=== PATIENT | male | born 1960 | race Caucasian/White ===

== ENCOUNTER 2016-07-27 11:12 | Outpatient (CLI) | payer OTHER | END 2016-07-27 11:13 | disposition home or self-care (01) | DX: Z12.2 Encounter for screening for malignant neoplasm of respiratory organs (principal); J43.9 Emphysema, unspecified; Z72.0 Tobacco use ==

== ENCOUNTER 2023-05-26 11:51 | Outpatient (CLI) | payer BC ==
--- NOTE | 2023-05-26 16:52 | CT Report ---
PROCEDURE: Lung Cancer Screen INDICATIONS: NICOTINE DEPENDENCE TECHNIQUE: A CT scan of the chest was performed. Intravenous contrast media was not administered. Images were re corded and evaluated at appropriate window settings. Reformats: axial MIP of the chest, coronal and s agittal. For radiation dose reduction, the following was used: automated exposure control, adjustment of mA and/or kV according to patient size. COMPARISON: Chest CT 11/24/2021 FINDINGS: Image quality: Excellent. Lungs and pleura: No pleural effusions. No pneumothorax. Mild centrilobular emphysematous changes. S table 5 mm left lower lobe peripheral nodule (4765). Stable 4 mm left upper lobe nodule (). Stabl e 4 mm right middle lobe nodule (07/25/2023). A few additional smaller nodular stable compared to prior . Mediastinum: Heart size is normal. Moderate coronary artery calcifications. No pericardial effusion. No large vessel abnormality. Atherosclerotic vascular calcifications are present. No mediastinal chelsea opathy by size criteria. Chest wall and lower neck: Thyroid is unremarkable. No axillary or supraclavicular adenopathy by size . Bones: No aggressive osseous abnormality. Degenerative changes of the spine. Upper Abdomen: Unremarkable. IMPRESSION: Stable pulmonary nodules measuring 5 mm or less. Mild emphysematous changes. Lung RAD: 2 - Benign. Recommendation: Continue annual screening in 12 Months with LDCT Reviewed by: Fred Juarez MD on 05/26/2023 4:50 PM PST Approved by: Fred Juarez MD on 05/26/2023 4:50 PM PST Station ID: [id number]
== END 2023-05-26 11:52 | disposition home or self-care (01) ==
LOC: DI 11:51
PROVIDERS: ATTEND Nurse Practitioner Family
DX: Z12.2 Encounter for screening for malignant neoplasm of respiratory organs (principal); F17.200 Nicotine dependence, unspecified, uncomplicated; R91.8 Other nonspecific abnormal finding of lung field; J43.2 Centrilobular emphysema; I25.10 Atherosclerotic heart disease of native coronary artery without angina pectoris

== ENCOUNTER 2024-06-02 10:34 | Inpatient (IN) ==
[2024-06-02 10:59] LABS: BASOPHILS % (AUTO) 0.1 %; EOSINOPHILS % (AUTO) 0.1 %; HCT - HEMATOCRIT 48.2 % (42.0-52.0); HGB - HEMOGLOBIN 15.8 g/dL (14.0-18.0); LYMPHOCYTES # (AUTO) 1.4 10^3/uL (1.5-3.5); LYMPHOCYTES % (AUTO) 10.1 %; MEAN CORPUSCULAR HEMOGLOBIN 31.5 pg (27.0-31.0); MEAN CORPUSCULAR HGB CONC 32.8 g/dL (32.0-36.0); MEAN CORPUSCULAR VOLUME 96.2 fL (80.0-94.0); MEAN PLATELET VOLUME 8.6 fL (7.4-11.4); MONOCYTES # (AUTO) 0.7 10^3/uL (0.0-1.0); MONOCYTES % (AUTO) 4.9 %; NEUTROPHILS % (AUTO) 84.3 %; PLT - PLATELET COUNT 231 10^3/uL (130-450); RED BLOOD COUNT 5.01 10^6/uL (4.70-6.10); WHITE BLOOD COUNT 14.2 x10^3/uL (4.8-10.8)
[2024-06-02 11:14] LABS: ALBUMIN 4.7 g/dL (3.2-5.5); ALBUMIN/GLOBULIN RATIO 1.6 (1.0-2.2); BILIRUBIN,TOTAL 0.5 mg/dL (0.2-1.0); CREATININE 0.6 mg/dL (0.6-1.3); POTASSIUM 3.8 mmol/L (3.5-4.5); TOTAL PROTEIN 7.6 g/dL (6.4-8.9)
[2024-06-02] MEDS: diltiaZEM INJ 5 MG/ML VIAL IVP STA ×2 (11:14→16:28)
[2024-06-02 11:20] LABS: TROPONIN I HIGH SENSITIVITY 18.8 ng/L (2.3-19.7)
--- NOTE | 2024-06-02 11:24 | XRAY Report ---
PROCEDURE: XR Chest 1V INDICATIONS: Chest pain TECHNIQUE: One view of the chest was acquired. COMPARISON: Screening chest CT dated 05/26/2023. FINDINGS: Surgical changes and devices: None. Lungs and pleura: No pleural effusions or pneumothorax. Increased bronchovascular markings in bilate ral hilar region are seen. No definite focal infiltrate.. Mediastinum: Mediastinal contours appear normal. Heart size is normal. Bones and chest wall: No suspicious bony lesions. Overlying soft tissues appear unremarkable. IMPRESSION: Suggestion of mild pulmonary vascular congestion. No focal infiltrate, pleural effusion o r pneumothorax. Reviewed by: Wilfred Suarez MD on 06/02/2024 11:23 AM PST Approved by: Wilfred Suarez MD on 06/02/2024 11:23 AM PST Station ID: [id number]
--- NOTE | 2024-06-02 11:30 | ED Physician Documentation ---
History of Present Illness Stated complaint Stated Complaint: COPD Chief complaint Chief Complaint: Resp History obtained from History obtained from: Patient History of Present Illness Timing: Prior to arrival Additonal information Additional information: Patient is a 63-year-old male presenting to the emergency department with past medical history of COPD about 1 week ago patient began experiencing symptoms that he describes as chest congestion cough some mild tightness in his chest. His spouse started him on steroids on Wednesday for persistent symptoms and he was taking albuterol for his symptoms. He notes some tightness to his chest but no specific chest pain. He notes persistent productive cough that has been going on since then. He notes last night he was having difficulty sleeping as he felt palpitations which worsens his anxiety symptoms. He notes he has difficulty Laying flat but does not notice any new lower leg swelling. He tried his alb uterol and steroids at home multiple times today too many to count and decided to come into the ER. He has no history of arrhythmias or atrial fibrillation. He feels palpitations to his chest that been going on since Wednesday. He denies any fevers or chills. Unsure of any recent sick contacts. Meds/Allgy Home Medications Ambulatory Orders Medication Instructions Recorded Confirmed albuterol sulfate 2.5 mg/3 mL 2.5 mg inhalation QID PRN 06/02/24 06/02/24 (0.083 %) solution for nebulization shortness of breath or wheezing albuterol sulfate 90 mcg/actuation 2 inh inhalation QID PRN shortness 06/02/24 06/02/24 aerosol inhaler of breath or wheezing aspirin 81 mg tablet,delayed 81 mg PO DAILY 06/02/24 06/02/24 release (Adult Aspirin Regimen) budesonide-formoterol HFA 160 1 inh inhalation DAILY 06/02/24 06/02/24 mcg-4.5 mcg/actuation aerosol inhaler niacin 500 mg tablet,extended 500 mg PO DAILY 06/02/24 06/02/24 release 24 hr omega 5-bzj-imt-fish oil 1,000 mg 1 cap PO DAILY 06/02/24 06/02/24 (120 mg-180 mg) capsule (Fish Oil) prednisolone 5 mg tablet 60 mg PO DAILY 06/02/24 06/02/24 (Millipred) rosuvastatin 40 mg tablet 40 mg PO DAILY 06/02/24 06/02/24 tiotropium bromide 18 mcg capsule 1 cap inhalation DAILY 06/02/24 06/02/24 with inhalation device Allergies Allergies Allergy/AdvReac Type Severity Reaction Status Date / Time No Known Drug Allergies Allergy Verified 06/02/24 10:44 [facility] Medical History Medical History Hypertension Hyperlipemia COPD (chronic obstructive pulmonary disease) Surgical History Surgical History (Updated 06/02/24 @ 11:10 by Molly Dodge RN) History of surgery on arm Social History Social History Smoking Status: Current every day smoker Do you dip or chew tobacco?: Yes Do you vape?: No Relationship: Spouse Level: Independent Do you feel safe in your home environment?: Yes Suffered physical, verbal, emotional, or financial abuse?: No Exam Constitutional normal general appearance Patient appears slightly diaphoretic but ANO x 3 answering questions and is alert here in the ED. HENMT normocephalic, head/scalp atraumatic and hearing grossly normal bilaterally Eyes PERRL and EOMs intact bilaterally Neck/C-Spine visual inspection normal Lymph no lymphadenopathy noted Chest inspection of chest normal Respiratory Diffuse rhonchi crackles on auscultation bilateral lungs. Generalized Rales on auscultation of the lower lungs as well. Patient does not appear to be retracting or using accessory muscles here in the ED. Cardiovascular Patient significantly tachycardic here in the ED suspect regular rhythm on pulse evaluation no signs of edema no gallop peripheral pulses 2+ throughout. Gastrointestinal abdomen normal to inspection Genitourinary no CVA tenderness Back/Pelvis spine normal to inspection Extremities normal to inspection No lower lower leg swelling appreciated. Skin skin color normal Results Vitals Vitals: Oxygen O2 Source Room air EKG (time done) 1050: EKG releavant findings:: EKG personally interpreted by author of this note. Relevant findings are: Rate: Rate (enter#) (173) Rhythm: SVT [place]: Normal Ischemia: ST depression and Other (minimal ST depression in inferior leads) Compare to prior EKG: Old EKG unavailable Computer interpretation: Agree with computer Labs Labs: Laboratory Tests 06/02/24 06/02/24 06/02/24 10:55 11:00 12:01 WBC 14.2 H RBC 5.01 Hgb 15.8 Hct 48.2 MCV 96.2 H MCH 31.5 H MCHC 32.8 RDW 12.0 Plt Count 231 MPV 8.6 Neut # (Auto) 12.0 H Lymph # (Auto) 1.4 L [place] # (Auto) 0.7 Eos # (Auto) 0.0 Baso # (Auto) 0.0 Absolute Nucleated RBC 0.00 Nucleated RBC % 0.0 VBG pH 7.447 H VBG pCO2 41.1 VBG pO2 80.4 H VBG HCO3 28.6 H VBG Total CO2 29.9 H VBG O2 Saturation 96.0 H VBG Base Excess 4.4 H Sodium 136 Potassium 3.8 Chloride 99 L Carbon Dioxide 30 Anion Gap 7.0 BUN 11 Creatinine 0.6 Estimated GFR (MDRD) 135 Glucose 142 H Calcium 10.0 Total Bilirubin 0.5 AST 25 ALT 22 Alkaline Phosphatase 45 Troponin I High Sens 18.8 B-Natriuretic Peptide 72 Total Protein 7.6 Albumin 4.7 Globulin 2.9 Albumin/Globulin Ratio 1.6 Lipase 23 Nasal Adenovirus (PCR) NOT DETECTED Nasal B. parapertussis DNA (PCR) NOT DETECTED Nasal Coronavir 229E PCR NOT DETECTED Nasal Coronavir HKU1 PCR NOT DETECTED Nasal Coronavir NL63 PCR NOT DETECTED Nasal Coronavir OC43 PCR DETECTED A Nasal Enterovir/Rhinovir PCR NOT DETECTED Nasal Influenza B PCR NOT DETECTED Nasal Influenza A PCR NOT DETECTED Nasal Parainfluen 1 PCR NOT DETECTED Nasal Parainfluen 2 PCR NOT DETECTED Nasal Parainfluen 3 PCR NOT DETECTED Nasal Parainfluen 4 PCR NOT DETECTED Nasal RSV (PCR) NOT DETECTED Nasal B.pertussis DNA PCR NOT DETECTED Nasal C.pneumoniae (PCR) NOT DETECTED Gino Human Metapneumo PCR NOT DETECTED Nasal M.pneumoniae (PCR) NOT DETECTED Nasal SARS-CoV-2 (PCR) NOT DETECTED Rads (name of study) CXR: Relevant Findings:: Final report received and EMP independent interpretation of test Interpretation: Diffuse mild pulmonary vascular congestion on chest x-ray PD Medical Decision Making ED course Complexity details: reviewed old records and reviewed results ED course: Patient is a 63-year-old male presenting to the emergency department with past medical history of COPD about 1 week ago he began to develop symptoms of cough congestion he on arrival was significantly tachycardic to the 170s what appeared to be SVT however at rest patient converts back to sinus rhythm. No diltiazem was ordered here in the ED. He has no significant wheezing he was covered with ceftriaxone and IV methylprednisone on arrival for acute COPD exasperation his chest x-ray is concerning for mild pulmonary vascular congestion. Patient has no history of CHF no lower leg swelling but diffuse Rales on auscultation of the lungs. Blood pressure is stable we will give small dose of IV Lasix here in the emergency department. CT/PE: 1.No pulmonary embolus. No acute pulmonary process. New right upper lobe nodules measuring 6 mm. Recommend follow-up CT chest in 3-6 months. IV Lasix was held here in the ED on review of chest x-ray and CT PE showing no signs of fluid overload. Patient was started on some IV fluids 2 doses of 0.5 mg Ativan given to patient which she tolerated well this did seem to slow his heart rate down to the 120s but he will have intermittent episodes of significant tachycardia. Discussed with patient he was given diltiazem despite it being held earlier for sinus rhythm with sinus tachycardia given his episodes of SVT here in the ED this did seem to resolve his symptoms heart rates remained in the 110s here in the ED and patient improved significantly. Coughing improved and patient resting comfortably in the ED. He will be admitted for persistent symptoms cough viral uri acute on chronic respiratory failure. Patient and his are agreeable with this plan. Discussed case with hospitalist Dr. Ly who accepts patient and will admit patient to the floor. Discharge Plan Discharge Patient Disposition: 64 [facility] DC/Xfer Condition: Stable Clinical Impression: Acute hypoxic respiratory failure, COPD exacerbation, Coronavirus infection, unspecified, Sinus tachycardia Leukocytosis Qualifiers: Leukocytosis type: unspecified Qualified Code(s): D72.829 - Elevated white blood cell count, unspecified Interventions: ED Admission Assessment Last Done: 06/02/24 18:22
[2024-06-02] MEDS: methylPREDNISolone SUCCINATE 125 MG/2 ML VIAL IVP STA (11:36)
[2024-06-02] MEDS: cefTRIAXone 1 GM VIAL IVP STA (11:39)
[2024-06-02 11:52] LABS: B. PARAPERTUSSIS- RESP PCR PAN NOT DETECTED; B. PERTUSSIS- RESP PCR PANEL NOT DETECTED; C. PNEUMONIAE- RESP PCR PANEL NOT DETECTED; CORONAVIRUS 229E-RESP PCR NOT DETECTED; CORONAVIRUS HKU1-RESP PCR NOT DETECTED; CORONAVIRUS NL63-RESP PCR NOT DETECTED; CORONAVIRUS OC43-RESP PCR DETECTED; HUMAN METAPNEUMOVIRUS NOT DETECTED; INFLUENZA A- RESP PCR PANEL NOT DETECTED; INFLUENZA B - RESP PCR PANEL NOT DETECTED; M. PNEUMONIAE- RESP PCR PANEL NOT DETECTED; PARAINFLUENZA VIRUS 1 NOT DETECTED; PARAINFLUENZA VIRUS 2 NOT DETECTED; PARAINFLUENZA VIRUS 4 NOT DETECTED; RHINOVIRUS/ENTEROVIRUS NOT DETECTED; RSV- RESP PCR PANEL NOT DETECTED; SARS-CoV-2 -RESP PCR PANEL NOT DETECTED
[2024-06-02] MEDS: FUROSEMIDE 20 MG/2 ML VIAL IVP STA (12:04)
[2024-06-02 12:08] LABS: VBG BASE EXCESS 4.4 mmol/L (-2 - +2); VBG PCO2 41.1 mmHg (41-51); VBG PH 7.447 (7.31-7.41); VBG PO2 80.4 mmHg (25-47); VBG TOTAL CO2 29.9 mmol/L (24-29)
[2024-06-02] MEDS: BENZONATATE 100 MG CAPSULE PO STA (12:10)
[2024-06-02] MEDS: LORazepam 2 MG/ML VIAL IVP STA ×2 (12:10→15:19)
[2024-06-02] MEDS: IPRATROPIUM/ALBUTEROL 3 ML NEB INH STA ×2 (12:27→14:03)
[2024-06-02] MEDS: SODIUM CHLORIDE 0.9% 1,000 ML IV STA ×2 (15:21→16:34)
[2024-06-02] MEDS ORDERED: iohexoL-300 100 ML VIAL ONE (16:02)
--- NOTE | 2024-06-02 16:49 | CT Report ---
PROCEDURE: CT Angio Chest INDICATIONS: rule out PE, concern for fluid overload vs. COPD CONTRAST: omni 300, 80 TECHNIQUE: After the administration of intravenous contrast, 2 mm axial images were acquired from the pulmonary apices to the posterior costophrenic angles during the arterial phase. In addition, 1 mm lung kernel and 5 mm soft tissue kernel reconstructions were performed. 3-dimensional coronal oblique maximum int ensity projection (MIP) reformats, 8 mm axial MIP, and 5 mm coronal and sagittal MPR reformats were t hen performed through the thorax. For radiation dose reduction, the following was used: automated exp osure control, adjustment of mA and/or kV according to patient size. COMPARISON: CT chest 05/26/2023. FINDINGS: Image quality: Excellent. Large vessels: No filling defects within the opacified pulmonary arteries, accounting for motion and contrast timing. No evidence of acute aortic syndrome or aortic aneurysm. Lungs and pleura: No consolidation. No pleural effusions. No pneumothorax. Right upper lobe nodule m easuring 6 mm is new compared to prior (). Additional right upper lobe nodule measuring 6 mm is n ew compared to prior ). Mild emphysematous changes. Mediastinum: Heart size is normal. Moderate coronary artery calcifications. No pericardial effusion. No large vessel abnormality. No mediastinal adenopathy by size criteria. Chest wall and lower neck: Thyroid is unremarkable. No axillary or supraclavicular adenopathy by size . Bones: No aggressive osseous abnormality. Degenerative changes of the spine. Upper Abdomen: Unremarkable. IMPRESSION: 1.No pulmonary embolus. 2.No acute pulmonary process. 3.New right upper lobe nodules measuring 6 mm. Recommend follow-up CT chest in 3-6 months. Reviewed by: Fred Juarez MD on 06/02/2024 4:48 PM PST Approved by: Fred Juarez MD on 06/02/2024 4:48 PM PST Station ID: [id number]
[2024-06-02] MEDS: IPRATROPIUM/ALBUTEROL 3 ML NEB INH SCH (17:50)
--- NOTE | 2024-06-02 17:53 | HISTORY & PHYSICAL EXAMINATION ---
Chief Complaint Chief Complaint Chief Complaint: Coughing History of Present Illness Admitted From Admitted From:: Home History Obtained From Records Reviewed: EMR History obtained from: Patient Exam Limitations: None History of Present Illness HPI Comment/Other: Patient is a 63-year-old male with a history of COPD not on home oxygen who presents with worsening dyspnea, cough for approximately 5 to 6 days. 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 He denies any fevers, but he has had some chills. He states when he coughs it is more of a dry cough. He has been having increasing wheezing as well. His partner is at the bedside, and she states that she gave him some prednisone, he has been taking about 60 mg daily without any relief. He is also been using his scheduled inhalers, as well as his albuterol inhaler as needed multiple times throughout the day without any relief. He denies any chest pain except for some pleuritic chest pain which happens when he coughs. He denies any chest pressure. He does feel like he felt like his heart was racing when it went up to the 170s to the 180s. Currently, he denies any palpitations or feelings of his heart racing. He denies any abdominal pain, nausea, vomiting. He also denies any lower extremity swelling, history of any cardiac problems or blood clots. In the emergency room, when patient first was admitted, his heart rate was as high as 175. He was breathing with a respiratory rate of 28, and his blood pressure was elevated at 167/131. He was afebrile. EKG done at that time did show supraventricular tachycardia. It appears he goes into these episodes of SVT when he is coughing, and resolves on its own. The emergency room did give him some Ativan as well as a push of Cardizem which did help with his heart rate. Physical exam was notable for diffuse expiratory wheezing, as well as diminished air entry bilaterally. Lab work was reviewedit does show a leukocytosis of 14.2. VBG was done which shows pH is 7.447, and CO2 of 41.1. Electrolytes were within normal limits. Creatinine was 0.6. Respiratory viral panel was positive for [id number] coronavirus. Chest x-ray showed mild pulmonary vascular congestion. This was followed by a CTA which showed no pulmonary embolus, but did show new right upper lobe nodules measuring 6 mm; they recommended a follow-up CT chest in 3 to 6 months. No consolidations were seen. He was given a dose of steroids, started on DuoNebs, as well as some scheduled Robitussin AC admitted for COPD exacerbation likely triggered by [id number] coronavirus. Meds/Allgy Home Medications Ambulatory Orders Medication Instructions Recorded Confirmed albuterol sulfate 2.5 mg/3 mL 2.5 mg inhalation QID PRN 06/02/24 06/02/24 (0.083 %) solution for nebulization shortness of breath or wheezing albuterol sulfate 90 mcg/actuation 2 inh inhalation QID PRN shortness 06/02/24 06/02/24 aerosol inhaler of breath or wheezing aspirin 81 mg tablet,delayed 81 mg PO DAILY 06/02/24 06/02/24 release (Adult Aspirin Regimen) budesonide-formoterol HFA 160 1 inh inhalation DAILY 06/02/24 06/02/24 mcg-4.5 mcg/actuation aerosol inhaler niacin 500 mg tablet,extended 500 mg PO DAILY 06/02/24 06/02/24 release 24 hr omega 6-tmd-dyi-fish oil 1,000 mg 1 cap PO DAILY 06/02/24 06/02/24 (120 mg-180 mg) capsule (Fish Oil) prednisolone 5 mg tablet 60 mg PO DAILY 06/02/24 06/02/24 (Millipred) rosuvastatin 40 mg tablet 40 mg PO DAILY 06/02/24 06/02/24 tiotropium bromide 18 mcg capsule 1 cap inhalation DAILY 06/02/24 06/02/24 with inhalation device Allergies Allergies Allergy/AdvReac Type Severity Reaction Status Date / Time No Known Drug Allergies Allergy Verified 06/02/24 10:44 [facility] Medical History Medical History Hypertension Hyperlipemia COPD (chronic obstructive pulmonary disease) Surgical History Surgical History (Updated 06/02/24 @ 11:10 by Molly Dodge RN) History of surgery on arm Social History Social History Smoking Status: Current every day smoker Do you dip or chew tobacco?: Yes Do you vape?: No Relationship: Spouse Level: Independent Do you feel safe in your home environment?: Yes Suffered physical, verbal, emotional, or financial abuse?: No POLST Patient has POLST: No POLST Status: Full Code Review of Systems Constitutional Reports: Fatigue, Chills, Malaise, Weakness and Diaphoresis; Denies: Fever, Night sweats, Changes in appetite or eating habits, Poor appetite, Weight gain or Weight loss Eyes Denies: Pain, Irritation, Amaurosis, Blurry vision, Floaters or Field loss Ears, nose, mouth, and throat Reports: Throat pain; Denies: Ear pain, Ear discharge, Hearing loss, Hearing aids, Tinnitus, Nasal discharge, Nasal congestion, Post nasal drip, Nasal obstruction, Neck pain, Throat swelling or Hoarseness Cardiovascular Reports: shortness of breath with exertion, shortness of breath when lying down and Decreased exercise tolerance; Denies: Irregular heart rate, chest pain, palpitations, edema, swelling of feet/ankles, Syncope or lightheadedness Respiratory Reports: Shortness of breath, Cough, Sputum production, Change in phlegm color, Wheezing, Pleuritic pain, SOB at rest, SOB with exertion and Chest congestion; Denies: Apnea, Snoring, Pain on inspiration, Coughing up blood or Orthopnea Gastrointestinal Denies: Abdominal pain, Abdominal distention, Nausea, Vomiting, Poor appetite, Bile emesis, Stefano blood emesis or Coffee grounds in vomit Genitourinary Denies: Painful urination, Flank pain, Incontinence, Urinary frequency, Urinary urgency, Nocturia, Blood in urine, Genital lesion or Penile discharge Musculoskeletal Denies: Back pain, Neck pain or Extremity pain Integumentary/Breast Denies: Rash, Itching, Dryness, Redness, Skin pain or Skin tenderness Neurological Reports: General weakness; Denies: Headache, Focal weakness, Weakness in extremities, Abnormal gait or Lack of coordination Psychiatric Denies: Depression, Anxiety, Mood swings, Panic attacks, Change in sleep pattern, Hopelessness, Paranoia or Delusions Endocrine Reports: Fatigue; Denies: Excessive urination, Excessive thirst, Polyphagia, Cold intolerance or Excessive sweating Hematologic/Lymphatic Denies: Anemia, Easy bruising, Petechiae, Easy bleeding or Blood clots Allergic/Immunologic Reports: Wheezing; Denies: Hives, Throat swelling or Tongue swelling Prior Level of Functionality: Fully independent of daily activities. Exam Constitutional normal general appearance, distress noted (mild) and (respiratory), abnormal body habitus (overweight) and alert HENMT normocephalic, head/scalp atraumatic and hearing grossly normal bilaterally Eyes PERRL, EOMs intact bilaterally, conjunctivae normal and no scleral icterus Neck/C-Spine visual inspection normal and trachea midline Lymph no lymphadenopathy noted Chest inspection of chest normal and palpation of chest normal Respiratory breath sounds equal bilaterally, abnormal respiratory effort (labored), auscultation abnormal and wheezing noted (expiratory wheezes) Diffuse expiratory wheezing in all lung bautista, diminished airflow, especially in bilateral lower lung bautista; mild respiratory distress noted, no accessory muscle use Cardiovascular heart rate abnormal (tachycardic), regular rhythm noted, no gallop, no rub, no murmur and no JVD Gastrointestinal abdomen normal to inspection, abdomen soft to palpation, nondistended and no hepatosplenomegaly Genitourinary no CVA tenderness Back/Pelvis spine normal to inspection, no thoracic spine tenderness and no lumbar spine tenderness Extremities normal to inspection, normal to palpation, no tenderness and full ROM Neurology no movement abnormality noted, no focal motor deficit noted and no sensory deficits noted Psychiatry mental status grossly normal, oriented x3, thought process normal, cooperative and affect normal Skin skin color normal, no rash, no lesions and no ecchymosis noted Conclusion/Plan Problem List (1) Acute hypoxic respiratory failure: Plan: Secondary to [id number] coronavirus triggering a COPD exacerbation. Patient currently requiring 2 L to maintain saturations. Lowest recorded saturation was 90%. Patient is in some mild respiratory distress. He has diffuse wheezing, diminished air entry bilaterally. Continue IV Solu-Medrol 40 mg every 6 hours for 4 doses, followed by prednisone 40 mg daily for 4 additional days if there is improvement. Continue DuoNebs every 4 hours scheduled. Will also schedule Robitussin AC for some cough suppression. (2) COPD exacerbation: Plan: Management as above. (3) Sinus tachycardia: Plan: Patient continues with sinus tachycardia with heart rate in the 1-teens. In the emergency room, during a coughing fit, he went as high as 170. Received 1 dose of diltiazem. Continue conservative measures including vagal maneuvers, ice packs if SVT were to return. (4) Coronavirus infection, unspecified: Plan: Management as above. (5) Leukocytosis: Plan: Patient has been taking prednisone at home. This is likely reactive to steroid use, as well as the viral infection going on currently. Qualifiers: Leukocytosis type: unspecified Qualified Code(s): D72.829 - Elevated white blood cell count, unspecified (6) Hypertension: Plan: Patient does take lisinopril at home. Does not take a beta-zaki, but was previously on metoprolol. If patient continues with inappropriate sinus tachycardia, will start low-dose beta- zaki. Qualifiers: Hypertension type: unspecified Qualified Code(s): I10 - Essential (primary) hypertension (7) Hyperlipemia: Plan: Continue statin. Qualifiers: Hyperlipidemia type: unspecified Qualified Code(s): E78.5 - Hyperlipidemia, unspecified (8) COPD (chronic obstructive pulmonary disease): Plan: Management as above. Continue home inhalers on discharge. Qualifiers: COPD type: unspecified COPD Qualified Code(s): J44.9 - Chronic obstructive pulmonary disease, unspecified (9) Tobacco use: Plan: Continue nicotine patch. Lab Results Lab results reviewed: Yes 06/03/24 05:50 06/03/24 05:50 Diagnostic Imaging Results Diagnostic Imaging Results: positive Final report reviewed EKG Results EKG Interpreted Independently: Yes Core Measures Anticipated LOS I expect patient to be DC'd or transferred within 96 hours.: Yes Issues Hospital Issues and Management Plan: None anticipated. DVT/VTE - Prophylaxis VTE/DVT Device ordered at admit?: Yes VTE/DVT Prophylaxis med ordered at admit?: Yes Stroke - Rehab Assessment Rehab services assessment to be ordered?: No Not Ordered - Medical Reason: Not indicated AMI - Statin at Admit Aspirin Prescribed on Admit: No Not Ordered - Medical Reason: Not indicated
[2024-06-02] MEDS: iohexoL-300 100 ML VIAL IVP ONE (18:13)
[2024-06-02] MEDS ORDERED: ONDANSETRON ODT 4 MG TABLET TL PRN (18:38)
[2024-06-02] MEDS ORDERED: ACETAMINOPHEN 325 MG TABLET PO PRN (18:38)
[2024-06-02] MEDS ORDERED: ONDANSETRON 4 MG/2 ML VIAL IVP PRN (18:38)
[2024-06-02] MEDS: NICOTINE 14 MG PATCH TOP STA (19:41)
[2024-06-02] MEDS: methylPREDNISolone SUCCINATE 40 MG/ML VIAL IVP SCH (19:42)
[2024-06-02] MEDS: guaiFENesin/CODEINE 5 ML UDC PO SCH (19:42)
[2024-06-02] MEDS: BENZOCAINE/MENTHOL LOZENGE MM SCH (19:43)
[2024-06-02] MEDS: ATORVASTATIN 40 MG TABLET PO SCH (21:46)
[2024-06-02] MEDS: SODIUM CHLORIDE FLUSH 0.9% 10 ML SYRINGE IVP SCH (23:51)
[2024-06-03 05:56] LABS: HCT - HEMATOCRIT 43.5 % (42.0-52.0); HGB - HEMOGLOBIN 14.2 g/dL (14.0-18.0); MEAN CORPUSCULAR HGB CONC 32.6 g/dL (32.0-36.0); MEAN PLATELET VOLUME 8.5 fL (7.4-11.4); RED BLOOD COUNT 4.44 10^6/uL (4.70-6.10); RED CELL DISTRIBUTION WIDTH 11.9 % (12.0-15.0); WHITE BLOOD COUNT 10.3 x10^3/uL (4.8-10.8)
[2024-06-03 06:15] LABS: CALCIUM 9.2 mg/dL (8.5-10.3); CREATININE 0.7 mg/dL (0.6-1.3)
--- NOTE | 2024-06-03 07:15 | PHARMACY PROGRESS NOTE ---
Best Possible Medication History Admit Date and Time: 06/02/24 1739 Home Medications Medication Instructions Recorded Confirmed Type albuterol sulfate 2.5 mg/3 mL 2.5 mg inhalation QID PRN 06/02/24 06/02/24 History (0.083 %) solution for nebulization shortness of breath or wheezing albuterol sulfate 90 mcg/actuation 2 inh inhalation QID PRN shortness 06/02/24 06/02/24 History aerosol inhaler of breath or wheezing aspirin 81 mg tablet,delayed 81 mg PO DAILY 06/02/24 06/02/24 History release (Adult Aspirin Regimen) budesonide-formoterol HFA 160 1 inh inhalation DAILY 06/02/24 06/02/24 History mcg-4.5 mcg/actuation aerosol inhaler niacin 500 mg tablet,extended 500 mg PO DAILY 06/02/24 06/02/24 History release 24 hr omega 1-hbp-gak-fish oil 1,000 mg 1 cap PO DAILY 06/02/24 06/02/24 History (120 mg-180 mg) capsule (Fish Oil) prednisolone 5 mg tablet 60 mg PO DAILY 06/02/24 06/02/24 History (Millipred) rosuvastatin 40 mg tablet 40 mg PO DAILY 06/02/24 06/02/24 History tiotropium bromide 18 mcg capsule 1 cap inhalation DAILY 06/02/24 06/02/24 History with inhalation device Processed by: Nursing Medications reviewed in ED?: Yes Medication History completed: Yes Patient Interview: Completed Secondary Source(s): Pharmacy records and Insurance records [facility] Statement: As the person ultimately responsible for medication therapy, providers are able to order a medication from an existing home medication list in [facility] via the "Reconcile Routine" prior to Confirmation of that medication by health support specialist. Such practice is discouraged except when the physician, in their clinical judgment, deems that a medical need exists for a medication without regard to previous use.
[2024-06-03] MEDS: ENOXAPARIN 40 MG/0.4 ML SYRINGE SUBQ SCH (08:46)
[2024-06-03] MEDS: OMEGA-3 ACID ETHYL ESTERS 1 GM CAPSULE PO SCH (08:47)
[2024-06-03] MEDS: ASPIRIN EC 81 MG TABLET PO SCH (08:47)
--- NOTE | 2024-06-03 10:09 | PROVIDER PROGRESS NOTE ---
Subjective Subjective Subjective: This morning, patient feels like his breathing is better. He is having less wheezing. Still gets short of breath when he does some minimal activity. He is still requiring 2 L. He is having recurrent episodes of sinus tachycardia, which appear to be SVT, mixed with sinus tach. He usually does not feel these events, but occasionally feels a fluttering in his chest. He has no cardiac issues in the past. Current Medications Current Medications Current Medications: Current Medications Generic Name Dose Route Start Last Admin Trade Name Freq PRN Reason Stop Dose Admin Acetaminophen 650 mg 06/02/24 18:38 Acetaminophen 325 Mg Tablet PO Q4HR PRN Pain 1 to 4, or Fever Albuterol/Ipratropium 3 ml 06/02/24 18:00 06/03/24 05:43 Ipratropium/Albuterol 3 Ml Neb INH 3 ml Q4HR MARIA ELENA Administration Aspirin 81 mg 06/03/24 09:00 06/03/24 08:47 Aspirin Ec 81 Mg Tablet PO 81 mg DAILY MARIA ELENA Administration Atorvastatin Calcium 80 mg 06/02/24 21:00 06/02/24 21:46 Atorvastatin 40 Mg Tablet PO 80 mg QPM MARIA ELENA Administration Enoxaparin Sodium 40 mg 06/03/24 09:00 06/03/24 08:46 Enoxaparin 40 Mg/0.4 Ml Syringe SUBQ 40 mg DAILY MARIA ELENA Administration Guaifenesin/Codeine Phosphate 5 ml 06/02/24 18:00 06/03/24 05:44 Guaifenesin/Codeine 5 Ml Udc PO 5 ml Q6HR MARIA ELENA Administration Methylprednisolone 40 mg 06/02/24 18:00 06/03/24 05:44 Methylprednisolone Succinate 40 Mg/Ml Vial IVP 06/03/24 12:01 40 mg Q6HR MARIA ELENA Administration Fvwsp-4-Olvk Ethyl Esters 1 gm 06/03/24 09:00 06/03/24 08:47 [place]-3 Acid Ethyl Esters 1 Gm Capsule PO 1 gm DAILY MARIA ELENA Administration Ondansetron HCl 4 mg 06/02/24 18:38 Ondansetron Odt 4 Mg Tablet TL Q6HR PRN Nausea / Vomiting Ondansetron HCl 4 mg 06/02/24 18:38 Ondansetron 4 Mg/2 Ml Vial IVP Q6HR PRN Nausea / Vomiting Sodium Chloride 10 ml 06/02/24 18:38 Sodium Chloride Flush 0.9% 10 Ml Syringe IVP PRN PRN NEEDED PER PROVIDER ORDERS Sodium Chloride 10 ml 06/03/24 01:00 06/03/24 08:46 Sodium Chloride Flush 0.9% 10 Ml Syringe IVP 10 ml 0100,0900,1700 MARIA ELENA Administration Throat Lozenges 1 lozenge 06/02/24 18:00 06/03/24 08:47 Benzocaine/Menthol Lozenge MM 1 lozenge Q4HR MARIA ELENA Administration Objective Vital Signs/Intake & Output Reviewed Vital Signs: Yes Vital Signs: Vital Signs x48h Temp Pulse Pulse Resp BP Pulse Ox O2 Flow Rate 06/03/24 08:05 98.6 F 121 H 24 138/94 H 92 2 06/03/24 05:43 2 06/03/24 05:43 108 H 20 2 Intake & Output: Intake & Output 05/31/24 06/01/24 06/02/24 06/03/24 23:59 23:59 23:59 23:59 Intake Total 1999 1135 / 1135 Balance 1999 1135 / 1135 Weight (kg) 84.5 kg Objective General Appearance: positive No acute distress and Alert; negative Anxious or Lethargic Eyes Bilateral: positive Normal inspection, PERRL and EOMI ENT: positive ENT inspection nml, Pharynx nml and No signs of dehydration Neck: positive Nml inspection, Thyroid nml and No JVD Respiratory: positive Chest non-tender, No respiratory distress and Wheezes (diffuse expiratory wheezes, improved from yesterday; good air movement ) Cardiovascular: positive Regular rate & rhythm and Tachycardia; negative Systolic murmur Abdomen: positive Non-tender, No organomegaly, Nml bowel sounds and No distention; negative Tenderness, Guarding, Rebound, Hepatomegaly or Splenomegaly Back: positive Nml inspection; negative CVA tenderness (R) or CVA tenderness (L) Skin: positive Color nml, No rash, Warm and Dry Extremities: positive Non-tender, Full ROM, Nml appearance and No pedal edema Neurologic/Psychiatric: positive Oriented x3 and Mood/affect nml Lab Results 06/03/24 05:50 06/03/24 05:50 Other Labs: Lab Results x24hrs 06/03/24 06/02/24 06/02/24 Range/Units 05:50 12:01 11:00 WBC 10.3 (4.8-10.8) x10^3/uL RBC 4.44 L (4.70-6.10) 10^6/uL Hgb 14.2 (14.0-18.0) g/dL Hct 43.5 (42.0-52.0) % MCV 98.0 H (80.0-94.0) fL MCH 32.0 H (27.0-31.0) pg MCHC 32.6 (32.0-36.0) g/dL RDW 11.9 L (12.0-15.0) % Plt Count 219 (130-450) 10^3/uL MPV 8.5 (7.4-11.4) fL Neut # (Auto) (1.5-6.6) 10^3/uL Lymph # (Auto) (1.5-3.5) 10^3/uL [place] # (Auto) (0.0-1.0) 10^3/uL Eos # (Auto) (0.0-0.7) 10^3/uL Baso # (Auto) (0.0-0.1) 10^3/uL Absolute Nucleated RBC x10^3/uL Nucleated RBC % /100WBC VBG pH 7.447 H (7.31-7.41) VBG pCO2 41.1 (41-51) mmHg VBG pO2 80.4 H (25-47) mmHg VBG HCO3 28.6 H (23-28) mmol/L VBG Total CO2 29.9 H (24-29) mmol/L VBG O2 Saturation 96.0 H (60-80) % VBG Base Excess 4.4 H (-2 - +2) mmol/L Sodium 136 (135-145) mmol/L Potassium 4.0 (3.5-4.5) mmol/L Chloride 100 L (101-111) mmol/L Carbon Dioxide 29 (21-32) mmol/L Anion Gap 7.0 (6-13) BUN 16 (6-20) mg/dL Creatinine 0.7 (0.6-1.3) mg/dL Estimated GFR (MDRD) 113 (>89) Glucose 160 H (74-104) mg/dL Calcium 9.2 (8.5-10.3) mg/dL Total Bilirubin (0.2-1.0) mg/dL AST (10-42) IU/L ALT (10-60) IU/L Alkaline Phosphatase (42-121) IU/L Troponin I High Sens (2.3-19.7) ng/L B-Natriuretic Peptide (5-100) pg/mL Total Protein (6.4-8.9) g/dL Albumin (3.2-5.5) g/dL Globulin (2.1-4.2) g/dL Albumin/Globulin Ratio (1.0-2.2) Lipase (11-82) U/L Nasal Adenovirus (PCR) NOT DETECTED Nasal B. parapertussis DNA (PCR) NOT DETECTED Nasal Coronavir 229E PCR NOT DETECTED Nasal Coronavir HKU1 PCR NOT DETECTED Nasal Coronavir NL63 PCR NOT DETECTED Nasal Coronavir OC43 PCR DETECTED A Nasal Enterovir/Rhinovir PCR NOT DETECTED Nasal Influenza B PCR NOT DETECTED Nasal Influenza A PCR NOT DETECTED Nasal Parainfluen 1 PCR NOT DETECTED Nasal Parainfluen 2 PCR NOT DETECTED Nasal Parainfluen 3 PCR NOT DETECTED Nasal Parainfluen 4 PCR NOT DETECTED Nasal RSV (PCR) NOT DETECTED Nasal B.pertussis DNA PCR NOT DETECTED Nasal C.pneumoniae (PCR) NOT DETECTED Gino Human Metapneumo PCR NOT DETECTED Nasal M.pneumoniae (PCR) NOT DETECTED Nasal SARS-CoV-2 (PCR) NOT DETECTED 06/02/24 Range/Units 10:55 WBC 14.2 H (4.8-10.8) x10^3/uL RBC 5.01 (4.70-6.10) 10^6/uL Hgb 15.8 (14.0-18.0) g/dL Hct 48.2 (42.0-52.0) % MCV 96.2 H (80.0-94.0) fL MCH 31.5 H (27.0-31.0) pg MCHC 32.8 (32.0-36.0) g/dL RDW 12.0 (12.0-15.0) % Plt Count 231 (130-450) 10^3/uL MPV 8.6 (7.4-11.4) fL Neut # (Auto) 12.0 H (1.5-6.6) 10^3/uL Lymph # (Auto) 1.4 L (1.5-3.5) 10^3/uL [place] # (Auto) 0.7 (0.0-1.0) 10^3/uL Eos # (Auto) 0.0 (0.0-0.7) 10^3/uL Baso # (Auto) 0.0 (0.0-0.1) 10^3/uL Absolute Nucleated RBC 0.00 x10^3/uL Nucleated RBC % 0.0 /100WBC VBG pH (7.31-7.41) VBG pCO2 (41-51) mmHg VBG pO2 (25-47) mmHg VBG HCO3 (23-28) mmol/L VBG Total CO2 (24-29) mmol/L VBG O2 Saturation (60-80) % VBG Base Excess (-2 - +2) mmol/L Sodium 136 (135-145) mmol/L Potassium 3.8 (3.5-4.5) mmol/L Chloride 99 L (101-111) mmol/L Carbon Dioxide 30 (21-32) mmol/L Anion Gap 7.0 (6-13) BUN 11 (6-20) mg/dL Creatinine 0.6 (0.6-1.3) mg/dL Estimated GFR (MDRD) 135 (>89) Glucose 142 H (74-104) mg/dL Calcium 10.0 (8.5-10.3) mg/dL Total Bilirubin 0.5 (0.2-1.0) mg/dL AST 25 (10-42) IU/L ALT 22 (10-60) IU/L Alkaline Phosphatase 45 (42-121) IU/L Troponin I High Sens 18.8 (2.3-19.7) ng/L B-Natriuretic Peptide 72 (5-100) pg/mL Total Protein 7.6 (6.4-8.9) g/dL Albumin 4.7 (3.2-5.5) g/dL Globulin 2.9 (2.1-4.2) g/dL Albumin/Globulin Ratio 1.6 (1.0-2.2) Lipase 23 (11-82) U/L Nasal Adenovirus (PCR) Nasal B. parapertussis DNA (PCR) Nasal Coronavir 229E PCR Nasal Coronavir HKU1 PCR Nasal Coronavir NL63 PCR Nasal Coronavir OC43 PCR Nasal Enterovir/Rhinovir PCR Nasal Influenza B PCR Nasal Influenza A PCR Nasal Parainfluen 1 PCR Nasal Parainfluen 2 PCR Nasal Parainfluen 3 PCR Nasal Parainfluen 4 PCR Nasal RSV (PCR) Nasal B.pertussis DNA PCR Nasal C.pneumoniae (PCR) Gino Human Metapneumo PCR Nasal M.pneumoniae (PCR) Nasal SARS-CoV-2 (PCR) Diagnostic Imaging Diagnostic Imaging Results: positive Final report reviewed Assessment/Plan Problem List (1) Acute hypoxic respiratory failure: Impression: Secondary to [id number] coronavirus triggering a COPD exacerbation. Patient currently requiring 2 L to maintain saturations. Lowest recorded saturation was 90%. Wheezing and respiratory distress is much improved. Continue IV Solu-Medrol 40 mg every 6 hours for 4 doses, followed by prednisone 40 mg daily for 4 additional days. Will switch scheduled DuoNebs to just Atrovent in case albuterol is contributing to the tachycardia. Will also schedule Robitussin AC for some cough suppression (2) Sinus tachycardia: Impression: Patient is going in and out of supraventricular tachycardia and sinus tachycardia, heart rate is ranging from 110-170. The periods of 170 only lasts for a few seconds, and then he goes back down to 1-teens to 130s. Will trial IV metoprolol 5 mg once. Will then start 25 mg metoprolol after this. Patient was previously on a beta-zaki in the outpatient setting years ago, was discontinued. Patient is asymptomatic during these episodes. He does feel like fluttering occasionally. He is normotensive during these episodes, hemodynamically stable. Concerned that the continuous albuterol in the DuoNebs is also contributing to the tachycardia. Will switch to just Atrovent inhaler every 4 hours. Troponin is negative, no concern for ischemic event at this time. (3) COPD exacerbation: Impression: Management as above. (4) Coronavirus infection, unspecified: Impression: Management as above. (5) Leukocytosis: Impression: Resolved. Qualifiers: Leukocytosis type: unspecified Qualified Code(s): D72.829 - Elevated white blood cell count, unspecified (6) Hypertension: Impression: Continue lisinopril. Metoprolol started. Qualifiers: Hypertension type: unspecified Qualified Code(s): I10 - Essential (primary) hypertension (7) Hyperlipemia: Impression: Continue statin. Qualifiers: Hyperlipidemia type: unspecified Qualified Code(s): E78.5 - Hyperlipidemia, unspecified (8) COPD (chronic obstructive pulmonary disease): Impression: Management as above. Continue home inhalers on dishcarge. Qualifiers: COPD type: unspecified COPD Qualified Code(s): J44.9 - Chronic obstructive pulmonary disease, unspecified (9) Tobacco use: Impression: Nicotine patch ordered.
[2024-06-03] MEDS: METOPROLOL 5 MG/5 ML VIAL IVP STA (11:18)
[2024-06-03] MEDS: METOPROLOL SUCCINATE 25 MG TABLET PO SCH ×2 (11:42→21:05)
[2024-06-03] MEDS ORDERED: METOPROLOL SUCCINATE 25 MG TABLET PO SCH (15:00)
[2024-06-03] MEDS: IPRATROPIUM 0.2 MG/ML NEB INH SCH (15:37)
[2024-06-03] MEDS: METOPROLOL 5 MG/5 ML VIAL IVP ONE (16:19)
[2024-06-03] MEDS ORDERED: METOPROLOL 5 MG/5 ML VIAL IVP PRN (18:48)
[2024-06-03] MEDS: MELATONIN 3 MG TABLET PO SCH (23:01)
[2024-06-04 04:47] LABS: HCT - HEMATOCRIT 42.5 % (42.0-52.0); HGB - HEMOGLOBIN 13.7 g/dL (14.0-18.0); MEAN CORPUSCULAR HEMOGLOBIN 31.8 pg (27.0-31.0); MEAN CORPUSCULAR HGB CONC 32.2 g/dL (32.0-36.0); MEAN CORPUSCULAR VOLUME 98.6 fL (80.0-94.0); RED BLOOD COUNT 4.31 10^6/uL (4.70-6.10); RED CELL DISTRIBUTION WIDTH 11.9 % (12.0-15.0); WHITE BLOOD COUNT 16.3 x10^3/uL (4.8-10.8)
[2024-06-04 05:01] LABS: CALCIUM 9.1 mg/dL (8.5-10.3); CREATININE 0.8 mg/dL (0.6-1.3); POTASSIUM 4.7 mmol/L (3.5-4.5)
[2024-06-04] MEDS: SODIUM CHLORIDE FLUSH 0.9% 10 ML SYRINGE IVP PRN (09:27)
[2024-06-04] MEDS: cefTRIAXone 1 GM VIAL IVP SCH (09:27)
[2024-06-04] MEDS: predniSONE 20 MG TABLET PO SCH (09:27)
[2024-06-04] MEDS: AZITHROMYCIN 250 MG TABLET PO SCH (09:27)
--- NOTE | 2024-06-04 11:13 | PROVIDER PROGRESS NOTE ---
Subjective Subjective Subjective: The night was rough. He had many coughing fits. This was abated with the Robitussin with codeine. He is having some difficulty breathing, especially with movement and activity, even as late as brushing his teeth. He denies any fevers or chills. He has not had any more palpitations or feelings of his heart racing. Current Medications Current Medications Current Medications: Current Medications Generic Name Dose Route Start Last Admin Trade Name Freq PRN Reason Stop Dose Admin Acetaminophen 650 mg 06/02/24 18:38 Acetaminophen 325 Mg Tablet PO Q4HR PRN Pain 1 to 4, or Fever Aspirin 81 mg 06/03/24 09:00 06/04/24 08:19 Aspirin Ec 81 Mg Tablet PO 81 mg DAILY MARIA ELENA Administration Atorvastatin Calcium 80 mg 06/02/24 21:00 06/03/24 21:05 Atorvastatin 40 Mg Tablet PO 80 mg QPM MARIA ELENA Administration Azithromycin 500 mg 06/04/24 09:00 06/04/24 09:27 Azithromycin 250 Mg Tablet PO 06/06/24 09:01 500 mg DAILY MARIA ELENA Administration Ceftriaxone Sodium 1 gm 06/04/24 09:00 06/04/24 09:27 Ceftriaxone 1 Gm Vial IVP 1 gm DAILY MARIA ELENA Administration Enoxaparin Sodium 40 mg 06/03/24 09:00 06/04/24 08:18 Enoxaparin 40 Mg/0.4 Ml Syringe SUBQ 40 mg DAILY MARIA ELENA Administration Guaifenesin/Codeine Phosphate 5 ml 06/02/24 18:00 06/04/24 11:00 Guaifenesin/Codeine 5 Ml Udc PO 5 ml Q6HR MARIA ELENA Administration Ipratropium [place] 0.5 mg 06/03/24 15:45 Ipratropium 0.2 Mg/Ml Neb INH RTQID PRN shorntess of breath Melatonin 3 mg 06/03/24 21:31 06/03/24 23:01 Melatonin 3 Mg Tablet PO 3 mg QPM MARIA ELENA Administration Metoprolol Succinate 25 mg 06/03/24 21:00 06/04/24 08:19 Metoprolol Succinate 25 Mg Tablet PO 25 mg BID MARIA ELENA Administration Nrrnc-6-Bzyn Ethyl Esters 1 gm 06/03/24 09:00 06/04/24 08:19 [place]-3 Acid Ethyl Esters 1 Gm Capsule PO 1 gm DAILY MARIA ELENA Administration Ondansetron HCl 4 mg 06/02/24 18:38 Ondansetron Odt 4 Mg Tablet TL Q6HR PRN Nausea / Vomiting Ondansetron HCl 4 mg 06/02/24 18:38 Ondansetron 4 Mg/2 Ml Vial IVP Q6HR PRN Nausea / Vomiting Prednisone 40 mg 06/04/24 09:00 06/04/24 09:27 Prednisone 20 Mg Tablet PO 40 mg DAILYWM MARIA ELENA Administration Sodium Chloride 10 ml 06/02/24 18:38 06/04/24 09:27 Sodium Chloride Flush 0.9% 10 Ml Syringe IVP 10 ml PRN PRN Administration NEEDED PER PROVIDER ORDERS Sodium Chloride 10 ml 06/03/24 01:00 06/04/24 08:19 Sodium Chloride Flush 0.9% 10 Ml Syringe IVP 10 ml 0100,0900,1700 MARIA ELENA Administration Throat Lozenges 1 lozenge 06/02/24 18:00 06/04/24 08:19 Benzocaine/Menthol Lozenge MM 1 lozenge Q4HR MARIA ELENA Administration Objective Vital Signs/Intake & Output Reviewed Vital Signs: Yes Vital Signs: Vital Signs x48h Temp Pulse Resp BP Pulse Ox O2 Flow Rate 06/04/24 08:19 98.1 F 100 21 150/105 H 91 L 06/04/24 05:00 98.8 F 80 20 143/87 H 95 2 Intake & Output: Intake & Output 06/01/24 06/02/24 06/03/24 06/04/24 23:59 23:59 23:59 23:59 Intake Total 1999 2891 / 2891 820 / 820 Output Total 825 / 825 900 / 900 Balance 1999 / 2065 -80 / -80 Weight (kg) 84.5 kg Objective General Appearance: positive No acute distress and Alert; negative Anxious or Lethargic Eyes Bilateral: positive Normal inspection, PERRL and EOMI ENT: positive ENT inspection nml, Pharynx nml and No signs of dehydration Neck: positive Nml inspection, Thyroid nml and No JVD Respiratory: positive Chest non-tender, No respiratory distress and Wheezes (diffuse expiratory wheezes, improved from yesterday; good air movement ) Cardiovascular: positive Regular rate & rhythm and Tachycardia; negative Systolic murmur Abdomen: positive Non-tender, No organomegaly, Nml bowel sounds and No distention; negative Tenderness, Guarding, Rebound, Hepatomegaly or Splenomegaly Back: positive Nml inspection; negative CVA tenderness (R) or CVA tenderness (L) Skin: positive Color nml, No rash, Warm and Dry Extremities: positive Non-tender, Full ROM, Nml appearance and No pedal edema Neurologic/Psychiatric: positive Oriented x3 and Mood/affect nml Lab Results 06/04/24 04:18 06/04/24 04:18 Other Labs: Lab Results x24hrs 06/04/24 06/03/24 Range/Units 04:18 06:00 WBC 16.3 H (4.8-10.8) x10^3/uL RBC 4.31 L (4.70-6.10) 10^6/uL Hgb 13.7 L (14.0-18.0) g/dL Hct 42.5 (42.0-52.0) % MCV 98.6 H (80.0-94.0) fL MCH 31.8 H (27.0-31.0) pg MCHC 32.2 (32.0-36.0) g/dL RDW 11.9 L (12.0-15.0) % Plt Count 239 (130-450) 10^3/uL MPV 9.0 (7.4-11.4) fL Sodium 136 (135-145) mmol/L Potassium 4.7 H (3.5-4.5) mmol/L Chloride 99 L (101-111) mmol/L Carbon Dioxide 35 H (21-32) mmol/L Anion Gap 2.0 L (6-13) BUN 21 H (6-20) mg/dL Creatinine 0.8 (0.6-1.3) mg/dL Estimated GFR (MDRD) 97 (>89) Glucose 121 H (74-104) mg/dL Calcium 9.1 (8.5-10.3) mg/dL Magnesium 2.0 1.8 (1.7-2.3) mg/dL Diagnostic Imaging Diagnostic Imaging Results: positive Final report reviewed Assessment/Plan Problem List (1) Acute hypoxic respiratory failure: Impression: Secondary to [id number] coronavirus triggering a COPD exacerbation. Patient was requiring 2 L to maintain saturations. Weaned down to room air when I was in the room. Lowest recorded saturation was 90%. Wheezing and respiratory distress are much improved but still present with even light activity. Completed IV Solu-Medrol 40 mg every 6 hours for 4 doses, and is now on by prednisone 40 mg daily for 4 additional days. Will switch scheduled DuoNebs to just Atrovent in case albuterol is contributing to the tachycardia. Will also schedule Robitussin AC for some cough suppression. Due to increase in leukocytosis, tachycardia, worsening symptoms, will treat for possible superimposed pneumonia. Rocephin and azithromycin started. (2) COPD exacerbation: Impression: Management as above. (3) Sinus tachycardia: Impression: Patient is going in and out of supraventricular tachycardia and sinus tachycardia, heart rate is ranging from 110-170. The periods of 170 only lasts for a few seconds, and then he goes back down to 1-teens to 130s. We started 25 mg metoprolol BID after a few pushes of IV metoprolol, with improvement. Patient was previously on a beta-zaki in the outpatient setting years ago, was discontinued. Patient is asymptomatic during these episodes. He does feel like fluttering occasionally. He is normotensive during these episodes, hemodynamically stable. Concerned that the continuous albuterol in the DuoNebs is also contributing to the tachycardia. Will switch to just Atrovent inhaler every 4 hours. Troponin is negative, no concern for ischemic event at this time. (4) Coronavirus infection, unspecified: Impression: Management as above. (5) Leukocytosis: Impression: Management as above. Qualifiers: Leukocytosis type: unspecified Qualified Code(s): D72.829 - Elevated white blood cell count, unspecified (6) Hypertension: Impression: Metoprolol started. Qualifiers: Hypertension type: unspecified Qualified Code(s): I10 - Essential (primary) hypertension (7) Hyperlipemia: Impression: Continue statin. Qualifiers: Hyperlipidemia type: unspecified Qualified Code(s): E78.5 - Hyperlipidemia, unspecified (8) COPD (chronic obstructive pulmonary disease): Impression: Management as above. Continue home inhalers on dishcarge. Qualifiers: COPD type: unspecified COPD Qualified Code(s): J44.9 - Chronic obstructive pulmonary disease, unspecified (9) Tobacco use: Impression: Nicotine patch ordered.
[2024-06-04] MEDS: IPRATROPIUM 0.2 MG/ML NEB INH PRN (20:00)
[2024-06-04] MEDS ORDERED: MELATONIN 3 MG TABLET PO SCH (21:00)
[2024-06-05 05:38] LABS: HCT - HEMATOCRIT 43.6 % (42.0-52.0); HGB - HEMOGLOBIN 14.1 g/dL (14.0-18.0); MEAN CORPUSCULAR HEMOGLOBIN 31.8 pg (27.0-31.0); MEAN CORPUSCULAR HGB CONC 32.3 g/dL (32.0-36.0); MEAN CORPUSCULAR VOLUME 98.4 fL (80.0-94.0); MEAN PLATELET VOLUME 8.7 fL (7.4-11.4); RED BLOOD COUNT 4.43 10^6/uL (4.70-6.10); RED CELL DISTRIBUTION WIDTH 11.9 % (12.0-15.0); WHITE BLOOD COUNT 12.9 x10^3/uL (4.8-10.8)
[2024-06-05 06:04] LABS: MAGNESIUM 2.1 mg/dL (1.7-2.3)
[2024-06-05 06:23] LABS: CALCIUM 8.9 mg/dL (8.5-10.3); CREATININE 0.7 mg/dL (0.6-1.3)
--- NOTE | 2024-06-05 11:07 | Discharge Summary ---
"Discharge Summary Admit Date: 06/02/24 Discharge Date: 06/05/24 Discharging Provider: Dr. Mariola Patrick Primary Care Provider: Aylin Gunderson Code Status: Attempt Resuscitation Discharge Facility Name: Home DIAGNOSES Admission Diagnoses: Acute hypoxic respiratory failure COPD exacerbation Sinus tachycardia Coronavirus infection, unspecified Leukocytosis Hypertension Hyperlipidemia COPD Tobacco use Discharge Diagnoses with Status of Each Condition: Acute hypoxic respiratory failure secondary to [id number] coronavirus triggering a COPD exacerbation. He likely has an superimposed bacterial pneumonia as well. Will discharge home on one more day of azithromycin, 3 more days of Augmentin, 2 more days of prednisone. Patient was not hypoxic at rest with room air saturations of 90%. With exertion on room air, his oxygen saturations declined to 86%. With exertion on 2 L, his oxygen saturations were 92%. I am ordering home oxygen, room air at rest and 2 L with exertion to treat his COPD and hypoxemia. COPD exacerbation management as above. Sinus tachycardiapatient was going in and out of supraventricular tachycardia when he first got here. He was using albuterol almost every two hours at home, which may trigger it. He was started on metoprolol twice a day, with improvement, which we will continue at home. I advised him to follow-up with a spring floor service worker, he may need an event monitor, and follow-up in the outpatient setting. Coronavirus infection, unspecifiedmanagement as above. Leukocytosisresolving. Hypertensioncontinue metoprolol, lisinopril in the outpatient setting. Hyperlipidemiacontinue statin. COPDcontinue home inhalers. Tobacco usepatient is very motivated to quit. HPI History of Present Illness: Patient is a 63-year-old male with a history of COPD not on home oxygen who presents with worsening dyspnea, cough for approximately 5 to 6 days. 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 He denies any fevers, but he has had some chills. He states when he coughs it is more of a dry cough. He has been having increasing wheezing as well. His partner is at the bedside, and she states that she gave him some prednisone, he has been taking about 60 mg daily without any relief. He is also been using his scheduled inhalers, as well as his albuterol inhaler as needed multiple times throughout the day without any relief. He denies any chest pain except for some pleuritic chest pain which happens when he coughs. He denies any chest pressure. He does feel like he felt like his heart was racing when it went up to the 170s to the 180s. Currently, he denies any palpitations or feelings of his heart racing. He denies any abdominal pain, nausea, vomiting. He also denies any lower extremity swelling, history of any cardiac problems or blood clots. In the emergency room, when patient first was admitted, his heart rate was as high as 175. He was breathing with a respiratory rate of 28, and his blood pressure was elevated at 167/131. He was afebrile. EKG done at that time did show supraventricular tachycardia. It appears he goes into these episodes of SVT when he is coughing, and resolves on its own. The emergency room did give him some Ativan as well as a push of Cardizem which did help with his heart rate. Physical exam was notable for diffuse expiratory wheezing, as well as diminished air entry bilaterally. Lab work was reviewedit does show a leukocytosis of 14.2. VBG was done which shows pH is 7.447, and CO2 of 41.1. Electrolytes were within normal limits. Creatinine was 0.6. Respiratory viral panel was positive for [id number] coronavirus. Chest x-ray showed mild pulmonary vascular congestion. This was followed by a CTA which showed no pulmonary embolus, but did show new right upper lobe nodules measuring 6 mm; they recommended a follow-up CT chest in 3 to 6 months. No consolidations were seen. He was given a dose of steroids, started on DuoNebs, as well as some scheduled Robitussin AC admitted for COPD exacerbation likely triggered by [id number] coronavirus. CONSULTS | PROCEDURES Consultations: Respiratory therapist Procedures: Chest x-ray, CT angiogram HOSPITAL COURSE Hospital Course: Patient is a 63-year-old male with a history of COPD who presented with worsening shortness of breath. He tested positive for [id number] coronavirus, which likely triggered this exacerbation of his COPD. He was started on steroids. He received breathing treatments [id number] as well. He was going into episodes of supraventricular tachycardia, sinus tachycardia. There is concern that this is triggered by the continuous albuterol that he was doing at home. This was stopped, and his breathing treatments were just switched to ipratropium. He was also started on metoprolol, which we will continue in the outpatient setting. He was advised to continue his lisinopril in the outpatient setting as well. On day 2 of his hospitalization, he did worsen with an increased cough, as well as leukocytosis. As such, he was started on IV antibiotics for a bacterial pneumonia. Today, he feels improved. Oxygen desaturation study was done, and he is requiring some oxygen with exertion. As such, we are working on sending him home with oxygen. Overall, he is feeling better, but he was still advised extensively to follow-up with his primary care provider, as well as a spring floor service worker in the outpatient setting. His primary care provider, he should see in the next 1 to 2 weeks. He demonstrated understanding of the above. ALLERGIES Allergies Allergy/AdvReac Type Severity Reaction Status Date / Time No Known Drug Allergies Allergy Verified 06/02/24 10:44 MEDICATIONS Ambulatory Orders Medication Instructions Recorded Confirmed albuterol sulfate 2.5 mg/3 mL 2.5 mg inhalation QID PRN 06/02/24 06/02/24 (0.083 %) solution for nebulization shortness of breath or wheezing albuterol sulfate 90 mcg/actuation 2 inh inhalation QID PRN shortness 06/02/24 06/02/24 aerosol inhaler of breath or wheezing aspirin 81 mg tablet,delayed 81 mg PO DAILY 06/02/24 06/02/24 release (Adult Aspirin Regimen) budesonide-formoterol HFA 160 1 inh inhalation DAILY 06/02/24 06/02/24 mcg-4.5 mcg/actuation aerosol inhaler niacin 500 mg tablet,extended 500 mg PO DAILY 06/02/24 06/02/24 release 24 hr omega 3-jrg-uyg-fish oil 1,000 mg 1 cap PO DAILY 06/02/24 06/02/24 (120 mg-180 mg) capsule (Fish Oil) rosuvastatin 40 mg tablet 40 mg PO DAILY 06/02/24 06/02/24 tiotropium bromide 18 mcg capsule 1 cap inhalation DAILY 06/02/24 06/02/24 with inhalation device amoxicillin 875 mg-potassium 1 tab PO BID 6 days #12 tabs 06/05/24 clavulanate 125 mg tablet azithromycin 250 mg tablet 500 mg (2 x 250 mg) PO DAILY #1 tab 06/05/24 codeine 10 mg-guaifenesin 100 mg/5 5 ml PO Q6HR #118 mL 06/05/24 mL oral liquid metoprolol succinate 50 mg 50 mg PO DAILY #30 tabs 06/05/24 tablet,extended release 24 hr prednisone 20 mg tablet 40 mg (2 x 20 mg) PO DAILYWM #4 06/05/24 tabs PHYSICAL EXAM AT DISCHARGE General Appearance: positive No acute distress and Alert; negative Anxious Eyes Bilateral: positive Normal inspection, PERRL and EOMI ENT: positive ENT inspection nml, Pharynx nml and No signs of dehydration Neck: positive Nml inspection, Thyroid nml and No JVD Respiratory: positive Chest non-tender, No respiratory distress and Other (Mild expiratory wheezes, much improved from admission) Cardiovascular: positive Regular rate & rhythm and Tachycardia Peripheral Pulses: positive 2+ Abdomen: positive Non-tender, No organomegaly and No distention; negative Hepatomegaly or Splenomegaly Back: positive Nml inspection; negative CVA tenderness (R) or CVA tenderness (L) Skin: positive Color nml, No rash, Warm and Dry Extremities: positive Non-tender, Full ROM, Nml appearance and No pedal edema Neurologic/Psychiatric: positive Oriented x3 and Mood/affect nml LABS 06/05/24 05:07 06/05/24 05:07 DIAGNOSTIC IMAGING Diagnostic Imaging Results: Final report reviewed QUALITY (Female Hip Fx Only) Was patient sent home on osteoporosis medication?: No FOLLOW UP Follow Up: Follow-up with your primary care provider. Follow-up with a spring floor service worker as well. TIME SPENT Time Spent in Discharge (Minutes): 35 Discharge Plan Discharge Patient Disposition: 01 Home, Self Care Condition: Stable Prescriptions: New azithromycin 250 mg Tablet 500 mg PO DAILY Qty: 1 0RF codeine-guaifenesin 10-100 mg/5 mL Liquid 5 ml PO Q6HR Qty: 118 0RF prednisone 20 mg Tablet 40 mg PO DAILYWM Qty: 4 0RF amoxicillin-pot clavulanate 875-125 mg tablet 1 tab PO BID 6 Days Qty: 12 0RF metoprolol succinate 50 mg tablet extended release 24 hr 50 mg PO DAILY Qty: 30 0RF Continued albuterol sulfate 2.5 mg /3 mL (0.083 %) solution for nebulization 2.5 mg inhalation QID PRN (Reason: shortness of breath or wheezing) niacin 500 mg tablet extended release 24 hr 500 mg PO DAILY albuterol sulfate 90 mcg/actuation HFA aerosol inhaler 2 inh INHALATION QID PRN (Reason: shortness of breath or wheezing) rosuvastatin 40 mg tablet 40 mg PO DAILY tiotropium bromide 18 mcg capsule, w/inhalation device 1 cap INHALATION DAILY Patient Comments: inhale THE CONTENTS OF ONE CAPSULE IN THE HANDIHALER 2 PUFFS once daily aspirin [Adult Aspirin Regimen] 81 mg tablet,delayed release (DR/EC) 81 mg PO DAILY omega 1-lxb-hwt-fish oil [Fish Oil] 1,000 (120-180) mg capsule 1 cap PO DAILY budesonide-formoterol 160-4.5 mcg/actuation HFA aerosol inhaler 1 inh INHALATION DAILY Discontinued prednisolone [Millipred] 5 mg tablet 60 mg PO DAILY Activity Restrictions: Activity as Tolerated Diet: Regular Health Concerns: You came in with shortness of breath. You are found to have a [id number] coronavirus, a.k.a. one of the many respiratory viruses that cause the common cold. This likely triggered a COPD exacerbation. We started you on steroids here. You got a little bit better, but your cough worsened, as did your shortness of breath yesterday. As such, we started treating you with antibiotics as well for possible superimposed bacterial pneumonia. Overall, you are doing much better today. You did walk around with the respiratory therapist, and your oxygen levels dropped. As such, we will be sending you home with oxygen. While you were here, we noticed that your heart rate was very high. You are going into something called supraventricular tachycardia. This could be triggered by just you being sick, or the albuterol solution that you are getting which was larger than the normal doses usually used. Nevertheless, we started you on a medication called metoprolol, which will help with your heart rate, as well as your blood pressure. Please continue this on discharge, I will be sending in a script for 50 mg extended release that you will take once a day in the morning. You can also take your lisinopril with this. I am also sending you home with one more day of azithromycin 500 mg, a medication for pneumonia. You will also be taking another antibiotic called Augmentin for 3 more days. Additionally, I am sending you home with 2 more days of prednisone. Please use your inhalers at home as needed and as prescribed, including your nebulization solution. As we discussed, I do want you to follow-up with a spring floor service worker. You will receive a referral from your primary care physician. I anticipate that they may want you to be on an event monitor so they can monitor your heart rate for any abnormalities in the outpatient setting. With that being said, I do want you to follow-up with your primary care provider in the next week or so. Please call their office when you can to make an appointment. You can take this paperwork in with you to let her know what went on during your stay. We are glad you are feeling better, thank you for allowing us to take care of you. Print Language: Mongolian Patient Instructions: COPD Dc, Chronic Lung Disease Oxygen Stand Alone Forms: PCP List Follow-up Care: KAITLYN LOPEZ ARNP [Primary Care Provider] -"
[2024-06-05 12:06] VITALS: BP 143/102; TEMP 97.9; O2SAT 94
== END 2024-06-05 14:28 | disposition home or self-care (01) | DRG 189 ==
LOC: ED 10:34 → MS2 17:39
PROVIDERS: ADMIT Internal Medicine; ATTEND Internal Medicine